=== PATIENT | female | born 1975 | race Caucasian/White ===

== ENCOUNTER 2017-12-08 20:54 | Emergency (ER) | payer OTHER ==
[~2017-12-08] VITALS: Ht 170.2 cm; Wt 79.3 kg
[~2017-12-08 20:54] MED LIST: NAPROXEN500 MG PO; NO HOME MEDS
[2017-12-08 21:51] LABS: HEMOGLOBIN 14.1 G/DL (11.9-15.5); MCH 31.1 PG (29.0-34.0); MCHC 36.2 G/DL (30.0-36.0); MCV 86.1 FL (83-99); PLATELET COUNT 298 K/uL (156-360); RBC DIS.WIDTH-CV 11.9 % (11.8-14.6); RBC DIS.WIDTH-SD 37.2 % (39-53); RED BLOOD COUNT 4.53 M/uL (3.80-5.20); WHITE BLOOD COUNT 9.7 K/uL (4.1-10.2)
[2017-12-08 22:19] LABS: CHLORIDE 106 mEq/L (99-109); POTASSIUM 3.7 mEq/L (3.7-5.4); SODIUM 141 mEq/L (136-147)
[2017-12-08 22:21] LABS: GLUCOSE 85 mg/dL (70-99)
[2017-12-08 22:25] LABS: CREATININE 0.8 mg/dL (0.6-1.3); GFR ESTIMATE (CALCULATED) > 59 mL/min/
[2017-12-08 22:26] LABS: UREA NITROGEN (BUN) 12 mg/dL (9-23)
[2017-12-08 22:38] LABS: QUANTITATIVE HCG < 4.0 MIU/ML
[2017-12-08 22:45] LABS: ERTH.SED.RATE 30 MM/HR (0-20)
[2017-12-09] MEDS ORDERED: FLEXERIL10 MG PO (00:13)
[2017-12-09] MEDS ORDERED: IMITREX50 MG PO (00:13)
[2017-12-09 00:33] VITALS: BP 122/81
== END 2017-12-09 00:34 | disposition home or self-care (01) ==
LOC: EME 20:54
PROVIDERS: Nurse Practitioner Family
DX: G43.809 Other migraine, not intractable, without status migrainosus (principal)
CPT/HCPCS: 70487; 70496; 80048; 84702; 85027; 85651; 99281; 99284; J1200; J1885; J2765; J3030; J7030